=== PATIENT | female | born 1990 | race Caucasian/White ===

== ENCOUNTER 2018-07-05 11:42 | Emergency (ER) | payer OTHER ==
[2018-07-05 11:47] VITALS: BMI 58.4
[2018-07-05] MEDS ORDERED: KETOROLAC TROMETHAMINE 30 MG/1 ML VIAL IVPUSH ONE (12:35)
--- NOTE | 2018-07-05 12:39 | PDOC ---
History of Present Illness <Skyla Whitehead - Last Filed: 07/05/18 15:11> - General History Source: Patient - History of Present Illness Timing/Duration: other Associated Symptoms: reports: nausea/vomiting, weakness. denies: chest pain, fever/chills, headaches, shortness of breath <Jenny Ring - Last Filed: 07/05/18 15:28> - General Chief Complaint: Vomiting/Diarrhea Stated Complaint: VOMITING, DIARRHEA Time Seen by Provider: 07/05/18 12:32 Past History <Skyla Whiteheadmorganlurdes - Last Filed: 07/05/18 15:11> - Past Medical History Asthma: Yes COPD: No Psychiatric Problems: Yes (ANXIETY) - Immunization History Immunization Up to Date: Yes - Suicide/Smoking/Psychosocial Hx Smoking Status: Yes Smoking History: Never smoked Have you smoked in the past 12 months: No Number of Cigarettes Smoked Daily: 0 Information on smoking cessation initiated: No Hx Alcohol Use: No Drug/Substance Use Hx: No Substance Use Type: None <Jenny Ring - Last Filed: 07/05/18 15:28> - Past Medical History Allergies/Adverse Reactions: Allergies Allergy/AdvReac Type Severity Reaction Status Date / Time No Known Drug Allergies Allergy Verified 03/06/18 11:10 ORANGES AdvReac Mild Hives Uncoded 03/06/18 11:10 Review of Systems - Review of Systems Constitutional: Yes: Malaise, Weakness. No: Chills, Fever HEENTM: Yes: Throat Pain Respiratory: Yes: Cough. No: Shortness of Breath, Wheezing Cardiac (ROS): No: Chest Pain ABD/GI: Yes: Diarrhea, Nausea, Vomiting. No: Abdominal cramping : No: Dysuria <Jenny Ring Last Filed: 07/05/18 15:28> *Physical Exam - Vital Signs Last Vital Signs Temp Pulse Resp BP Pulse Ox 98.4 F 98 H 22 H 116/64 97 07/05/18 11:44 07/05/18 11:44 07/05/18 11:44 07/05/18 11:44 07/05/18 12:55 <Skyla Whiteheadmason - Last Filed: 07/05/18 15:11> - Vital Signs Last Vital Signs Temp Pulse Resp BP Pulse Ox 98.4 F 98 H 22 H 116/64 97 07/05/18 11:44 07/05/18 11:44 07/05/18 11:44 07/05/18 11:44 07/05/18 11:44 - Physical Exam General Appearance: Yes: Appropriately Dressed. No: Apparent Distress HEENT: positive: Normal ENT Inspection, Normal Voice. negative: Scleral Icterus (R), Scleral Icterus (L) Neck: positive: Supple. negative: Lymphadenopathy (R), Lymphadenopathy (L) Respiratory/Chest: positive: Lungs Clear, Normal Breath Sounds. negative: Respiratory Distress Cardiovascular: positive: Regular Rate, S1, S2 Gastrointestinal/Abdominal: positive: Soft. negative: Tender Integumentary: positive: Dry, Warm Neurologic: positive: Fully Oriented, Alert, Normal Mood/Affect <Jenny Ring - Last Filed: 07/05/18 15:28> Moderate Sedation - Procedure Monitoring Vital Signs: Procedure Monitoring Vital Signs Temperature 98.4 F 07/05/18 11:44 Pulse Rate 98 H 07/05/18 11:44 Respiratory Rate 22 H 07/05/18 11:44 Blood Pressure 116/64 07/05/18 11:44 O2 Sat by Pulse Oximetry (%) 97 07/05/18 12:55 <Skyla Whitehead - Last Filed: 07/05/18 15:11> - Procedure Monitoring Vital Signs: Procedure Monitoring Vital Signs Temperature 98.4 F 07/05/18 11:44 Pulse Rate 98 H 07/05/18 11:44 Respiratory Rate 22 H 07/05/18 11:44 Blood Pressure 116/64 07/05/18 11:44 O2 Sat by Pulse Oximetry (%) 97 07/05/18 11:44 <Jenny Ring - Last Filed: 07/05/18 15:28> ED Treatment Course - LABORATORY CBC & Chemistry Diagram: 07/05/18 13:05 07/05/18 13:05 - ADDITIONAL ORDERS Additional order review: Laboratory Results 07/05/18 07/05/18 07/05/18 14:10 14:10 13:05 Sodium 137 Potassium 4.4 Chloride 104 Carbon Dioxide 29 Anion Gap 3 L BUN 11 Creatinine 0.7 Creat Clearance w eGFR > 60 Random Glucose 95 Calcium 8.7 Total Bilirubin 0.3 AST 17 ALT 17 Alkaline Phosphatase 77 Total Protein 7.8 Albumin 3.3 L Serum , Qual Negative Urine Color Red Urine Appearance Cloudy Urine pH 6.0 Ur Specific [place] 1.027 Urine Protein 2+ H Urine Glucose (UA) Negative Urine Ketones Negative Urine Blood 3+ H Urine Nitrite Negative Urine Bilirubin Negative Urine Urobilinogen Negative Ur Leukocyte Esterase 1+ H Urine WBC (Auto) 6 Urine RBC (Auto) 3345 Ur Epithelial Cells Rare Urine Bacteria Few 07/05/18 13:05 RBC 5.08 MCV 63.1 L MCHC 28.9 L RDW 18.2 H MPV 8.0 D Neutrophils % 77.4 Lymphocytes % 15.7 Monocytes % 4.6 Eosinophils % 1.7 Basophils % 0.6 <Skyla Whitehead - Last Filed: 07/05/18 15:11> - LABORATORY CBC & Chemistry Diagram: 07/05/18 13:05 07/05/18 13:05 - RADIOLOGY Radiology Studies Ordered: Category Date Time Status CHEST PA & LAT [RAD] Stat Radiology 07/05/18 12:35 Ordered <Jenny Ring - Last Filed: 07/05/18 15:28> Medical Decision Making - Medical Decision Making The patient was seen and evaluated in conjunction with midlevel provider under my direct supervision, ancillary studies were reviewed. I agree with the plan as outlined by NIESHA Ring. HPI, workup/dispo as outlined. baseline anemia, on menses. but no s/s infection. 07/05/18 15:11 07/05/18 15:11 <Skyla Whitehead - Last Filed: 07/05/18 15:11> - Medical Decision Making 07/05/18 12:36 28-year-old female, morbidly obesed, h/oasthma, here with body aches with malaise, sore throat, cough, nausea, vomiting diarrhea 2 weeks. No f/c. Went to see her doctor and told her flu test was neg. Was prescribed Z-Pack for unclear reasons which she completed and states she felt better, but that at some point, symptoms recurred. No recent travel or sick contacts. Currently no shortness of breath, chest tightness or wheezing See exam Viral syndrome Neg flu recently Maegan uncomfortable but stable w/ unremarkable exam otherwise -sportive tx in ED -labs/cxr -reassess 07/05/18 14:34 UA w/ bld (pt on menses), no e/o infxn. Rest of labs neg. Dc w/ supportive tx and pmd f/u as needed 07/05/18 15:28 Labs and chest x-ray unremarkable. Patient feels better with IV fluid. Will discharge with supportive treatment <Jenny Ring - Last Filed: 07/05/18 15:28> *DC/Admit/Observation/Transfer <Skyla Whitehead - Last Filed: 07/05/18 15:11> <Jenny Ring - Last Filed: 07/05/18 15:28> Diagnosis at time of Disposition: Viral syndrome - Discharge Dispostion Disposition: HOME Condition at time of disposition: Improved - Referrals Referrals: Damari Arriola MD [Primary Care Provider] - - Patient Instructions Printed Discharge Instructions: DI for Viral Syndrome Additional Instructions: You most likely have viral illness which will run its course, until it gets better. Your labs were all normal. Maintain adequate hydration and take Motrin or Tylenol as needed for pain - Post Discharge Activity Forms/Work/School Notes: Back to Work
[2018-07-05 13:24] LABS: BASO % 0.6 % (0-2.0); EOS % 1.7 % (0-4.5); HEMOGLOBIN 9.2 GM/dL (10.7-15.3); LYMPH % 15.7 % (8-40); MCHC 28.9 g/dl (32.0-36.0); MEAN CELL VOLUME 63.1 fl (80-96); MONO % 4.6 % (3.8-10.2); NEUT % 77.4 % (42.8-82.8); PLATELET COUNT 375 K/MM3 (134-434); RBC 5.08 M/mm3 (3.60-5.2); RDW 18.2 % (11.6-15.6); WHITE BLOOD COUNT 11.4 K/mm3 (4.0-10.0)
[2018-07-05 13:27] LABS: MCH 18.2 pg (25.7-33.7)
[2018-07-05 13:50] LABS: ALBUMIN 3.3 g/dl (3.4-5.0); ALK PHOS 77 U/L (45-117); ANION GAP 3 MMOL/L (8-16); BILIRUBIN,TOTAL 0.3 mg/dL (0.2-1); BLOOD UREA NITROGEN 11 mg/dL (7-18); CALCIUM 8.7 mg/dL (8.5-10.1); CHLORIDE 104 mmol/L (98-107); CO2 29 mmol/L (21-32); CREATININE 0.7 mg/dL (0.55-1.3); GLUCOSE,RANDOM 95 mg/dL (74-106); POTASSIUM 4.4 mmol/L (3.5-5.1); SGOT/AST 17 U/L (15-37); SGPT/ALT 17 U/L (13-61); SODIUM 137 mmol/L (136-145); TOT PROT 7.8 g/dl (6.4-8.2)
[2018-07-05] MEDS ORDERED: SODIUM CHLORIDE 1,000 ML IV STA (14:15)
[2018-07-05 14:27] LABS: URINE APPEARANCE CLOUDY; URINE BILIRUBIN NEGATIVE (<2.0 mg/dL); URINE COLOR RED; URINE GLUCOSE (UA) NEGATIVE (NEGATIVE); URINE KETONE NEGATIVE (NEGATIVE); URINE LEUK ESTERASE 1+ (NEGATIVE); URINE NITRITE NEGATIVE (NEGATIVE); URINE PROTEIN 2+ (NEGATIVE); URINE UROBILINOGEN NEGATIVE mg/dL (0.2-1.0)
[2018-07-05 14:31] LABS: EPI CELLS RARE /HPF (FEW); URINE BACTERIA FEW /hpf (NONE SEEN)
[2018-07-05 15:42] VITALS: BP 118/52; PULSE 70; TEMP 98.1
[2018-07-05 16:46] LABS: ANISOCYTOSIS 1+
== END 2018-07-05 15:40 | disposition home or self-care (01) ==
LOC: JER 11:42
PROC: 3E0337Z Introduction of Electrolytic and Water Balance Substance into Peripheral Vein, Percutaneous Approach (ICD-10-PCS; principal; 2018-07-05)
DX: B34.9 Viral infection, unspecified (principal); J45.909 Unspecified asthma, uncomplicated; F41.8 Other specified anxiety disorders; E66.01 Morbid (severe) obesity due to excess calories; Z68.43 Body mass index [BMI] 50.0-59.9, adult
CPT/HCPCS: 36415; 71046-TC-FY; 80053; 81003; 81015; 84703; 85025; 87070; 87077; 87880; 99283-25; J7030

== ENCOUNTER 2018-08-31 13:38 | Emergency (ER) | payer OTHER ==
[2018-08-31 13:56] VITALS: BP 148/84; PULSE 88; BMI 58.6
--- NOTE | 2018-08-31 15:29 | PDOC ---
History of Present Illness - General Chief Complaint: Pain, Acute Stated Complaint: LT KNEE PAIN Time Seen by Provider: 08/31/18 14:39 - History of Present Illness Initial Comments: 08/31/18 15:26 28-year-old female without comorbidities presents for evaluation of right knee pain after twisting type injury 2 days ago. She points to the anterior lateral aspect of the right knee as the area of her discomfort. Past History - Past Medical History Allergies/Adverse Reactions: Allergies Allergy/AdvReac Type Severity Reaction Status Date / Time No Known Drug Allergies Allergy Verified 08/31/18 13:50 ORANGES AdvReac Mild Hives Uncoded 08/31/18 13:50 Home Medications: Ambulatory Orders Albuterol Sulfate Inhaler - [Ventolin Hfa Inhaler -] 1 - 2 inh PO QID PRN Fluticasone Propionate [Flovent Diskus] 1 inh IN BID 08/31/18 Fluticasone/Salmeterol [Advair 250-50 Diskus] 1 each IH BID 08/31/18 Montelukast Na [Singulair -] 10 mg PO HS 08/31/18 Asthma: Yes COPD: No Psychiatric Problems: Yes (ANXIETY) - Immunization History Immunization Up to Date: Yes - Suicide/Smoking/Psychosocial Hx Smoking Status: Yes Smoking History: Never smoked Have you smoked in the past 12 months: No Number of Cigarettes Smoked Daily: 0 Hx Alcohol Use: No Drug/Substance Use Hx: No Substance Use Type: None Review of Systems - Review of Systems Musculoskeletal: Yes: Joint Pain *Physical Exam - Vital Signs Last Vital Signs Temp Pulse Resp BP Pulse Ox 88 22 H 148/84 99 08/31/18 13:54 08/31/18 13:54 08/31/18 13:54 08/31/18 13:54 - Physical Exam Comments: 08/31/18 15:26 Right knee skin color and temperature are normal. The patient is morbidly obese and difficult to examine. She has diffuse tenderness which seems out of proportion to the examination however raised area of tenderness seems to be about the medial lateral joint line. Her extensor mechanism is intact. She resist stability testing however I am able to check varus and valgus stress which is normal. Her thighs and calves are soft and nontender she is neurovascularly intact free of any gross sensorimotor deficits. Moderate Sedation - Procedure Monitoring Vital Signs: Procedure Monitoring Vital Signs Temperature Pulse Rate 88 08/31/18 13:54 Respiratory Rate 22 H 08/31/18 13:54 Blood Pressure 148/84 08/31/18 13:54 O2 Sat by Pulse Oximetry (%) 99 08/31/18 13:54 ED Treatment Course - RADIOLOGY Radiology Studies Ordered: Category Date Time Status KNEE 3 POS-RIGHT [RAD] Stat Radiology 08/31/18 14:49 Taken Medical Decision Making - Medical Decision Making 08/31/18 15:27 X-ray show a fair amount of arthritis in the patellofemoral compartment as well as the medial lateral compartment of the right knee. This is most likely may be a meniscal injury versus an exacerbation of early-onset arthritis given her young age. She may weight-bear as tolerated with the use of crutches and a knee immobilizer which I encouraged her remove her gentle range of motion and follow- up with orthopedic surgery in 1-2 days for further evaluation and treatment options. I also advised on the use of Tylenol and Motrin for pain. Her asthma which she has a past medical history of, is not sensitive to anti- inflammatories or aspirin. *DC/Admit/Observation/Transfer Diagnosis at time of Disposition: Knee pain, right - Discharge Dispostion Disposition: HOME Condition at time of disposition: Stable Decision to Admit order: No - Referrals Referrals: Damari Arriola MD [Primary Care Provider] - Edy Catherine MD [Staff Physician] - - Patient Instructions Additional Instructions: He may weight-bear as tolerated with use of crutches and the knee immobilizer. You may remove the knee immobilizer for hygiene and range of motion. Your comfortable to ambulate without the knee immobilizer and crutches you may do that as well. Follow-up with orthopedic surgery in 2-3 days, Tylenol Motrin as directed for pain. Return to the emergency room should symptoms worsen or go unresolved. - Post Discharge Activity
== END 2018-08-31 15:36 | disposition home or self-care (01) ==
LOC: JERFT 13:38
DX: M25.561 Pain in right knee (principal); X58.XXXA Exposure to other specified factors, initial encounter; Y93.89 Activity, other specified; Y92.89 Other specified places as the place of occurrence of the external cause; J45.909 Unspecified asthma, uncomplicated; F41.9 Anxiety disorder, unspecified; E66.01 Morbid (severe) obesity due to excess calories
CPT/HCPCS: 73562-TC-RT-FY; 99281-25

== ENCOUNTER 2019-05-23 10:37 | Emergency (ER) | payer OTHER ==
[2019-05-23 10:42] VITALS: BP 149/93; PULSE 100; TEMP 98.3; BMI 58.3
--- NOTE | 2019-05-23 11:25 | PDOC ---
History of Present Illness - General Chief Complaint: Abscess Boil Stated Complaint: LT BREAST PAIN Time Seen by Provider: 05/23/19 10:45 History Source: Patient Exam Limitations: Clinical Condition - History of Present Illness Initial Comments: 05/23/19 11:28 Patient with past medical history of left breast abscess 3 years ago presented for evaluation status post being seen by breast surgeon 3 days ago for cellulitis and abscess to left breast and placed on Augmentin antibiotics. Patient reporting improvement in abscess swelling and redness to left breast but started having tingling sensation this morning and wants to make sure everything is okay. Patient reported marked improvement in redness to skin of left breast. Patient reported had fever 5 days ago which has improved with antibiotics. Patient been doing hot compress to left breast. Denies any other symptoms. Patient report calling her surgeon's office to discuss numbness and tingling sensation to breast area but was advised to come to ED due to breast surgery not being in office Timing/Duration: reports: week Past History - Past Medical History Allergies/Adverse Reactions: Allergies Allergy/AdvReac Type Severity Reaction Status Date / Time No Known Drug Allergies Allergy Verified 05/23/19 10:43 ORANGES AdvReac Mild Hives Uncoded 05/23/19 10:43 Home Medications: Ambulatory Orders Montelukast Na [Singulair -] 10 mg PO HS 08/31/18 Asthma: Yes COPD: No Psychiatric Problems: Yes (ANXIETY) - Immunization History Immunization Up to Date: Yes - Psycho Social/Smoking Cessation Hx Smoking Status: Yes Smoking History: Never smoked Have you smoked in the past 12 months: No Number of Cigarettes Smoked Daily: 0 Hx Alcohol Use: No Drug/Substance Use Hx: No Substance Use Type: None Review of Systems - Review of Systems Able to Perform ROS?: Yes Is the patient limited Telugu proficient: No Constitutional: No: Chills, Fever HEENTM: No: Symptoms Reported Respiratory: No: Symptoms reported Cardiac (ROS): No: Symptoms Reported ABD/GI: No: Symptoms Reported Musculoskeletal: No: Symptoms Reported, See HPI, Muscle Pain (left breast) Integumentary: Yes: Symptoms Reported, See HPI, Erythema (improving redness to skin of left breast) Neurological: No: Symptoms reported All Other Systems: Reviewed and Negative *Physical Exam - Vital Signs Last Vital Signs Temp Pulse Resp BP Pulse Ox 98.3 F 100 H 16 149/93 98 11/26/19 10:39 05/23/19 10:39 05/23/19 10:39 05/23/19 10:39 05/23/19 10:39 - Physical Exam General Appearance: Yes: Nourished, Appropriately Dressed. No: Apparent Distress HEENT: positive: Normal ENT Inspection Neck: positive: Supple Respiratory/Chest: positive: Normal Breath Sounds. negative: Respiratory Distress, Accessory Muscle Use Musculoskeletal: positive: Normal Inspection Extremity: positive: Normal Inspection Integumentary: positive: Erythema (mild erythema arounf vannessa-areola of left breast. no discharge from breast), Swelling (mild hard induration to vannessa- areola of left breast), Other (no inverted nipples. no discharge from nipples) Neurologic: positive: Fully Oriented, Alert, Normal Mood/Affect, Normal Response Medical Decision Making - Medical Decision Making 05/23/19 11:33 Patient with history of breast abscess presenting for evaluation of redness and abscess to left breast which has been improving on Augmentin antibiotics and hot compresses. Patient presented for evaluation of tingling sensation and numbness sensation to areolar of left breast. Exam significant for mild erythema with mild induration to periareolar of left breast with no discharge or inverted nipples. Patient afebrile. Patient tingling sensation likely due to swelling of left breast with inflammatory of skin of breast. Normal sensory to skin of left breast. Patient advised to continue prescribed Augmentin antibiotics and hot compress to breast as instructed by breast surgeon. Patient had follow-up appointment in 5 days with breast surgeon for reassessment. Patient stable for discharge Discharge - Discharge Information Problems reviewed: Yes Clinical Impression/Diagnosis: Left breast abscess, Cellulitis of left breast Condition: Stable Disposition: HOME - Admission No - Follow up/Referral Referrals: Komal Celis MD [Staff Physician] - - Patient Discharge Instructions Patient Printed Discharge Instructions: DI for Skin Abscess Additional Instructions: Continue with prescribed Augmentin antibiotics as prescribed by breast surgeon. Apply hot compress to breast area 2-3 times a day as needed for swelling. Take Motrin as needed for pain. Follow-up with your breast surgeon as scheduled - Post Discharge Activity
== END 2019-05-23 11:29 | disposition home or self-care (01) ==
LOC: JERFT 10:37
DX: N61.1 Abscess of the breast and nipple (principal); F41.9 Anxiety disorder, unspecified; J45.909 Unspecified asthma, uncomplicated; Z91.018 Allergy to other foods
CPT/HCPCS: 99281-25

== ENCOUNTER 2020-07-10 19:01 | Emergency (ER) | payer OTHER ==
[2020-07-10 19:08] VITALS: TEMP 98.5; BMI 60.2
[2020-07-10 21:43] LABS: BASO % 0.5 % (0-2.0); EOS % 0.1 % (0-4.5); HEMATOCRIT 31.9 % (32.4-45.2); HEMOGLOBIN 9.7 GM/dL (10.7-15.3); LYMPH % 13.6 % (8-40); MCHC 30.5 g/dl (32.0-36.0); MEAN CELL VOLUME 62.3 fl (80-96); MEAN PLT VOLUME 9.1 fl (7.5-11.1); NEUT % 82.8 % (42.8-82.8); PLATELET COUNT 364 K/MM3 (134-434); RBC 5.12 M/mm3 (3.60-5.2); RDW 19.2 % (11.6-15.6); WHITE BLOOD COUNT 7.5 K/mm3 (4.0-10.0)
[2020-07-10 21:55] LABS: PH,URINE 7.5 (5.0-8.0); URINE APPEARANCE Clear; URINE BILIRUBIN Negative (NEGATIVE); URINE COLOR Yellow; URINE GLUCOSE (UA) Negative (NEGATIVE); URINE KETONE Negative (NEGATIVE); URINE LEUK ESTERASE Negative (NEGATIVE); URINE NITRITE Negative (NEGATIVE); URINE PROTEIN Negative (NEGATIVE); URINE UROBILINOGEN 0.2 mg/dL (0.2-1.0)
[2020-07-10 22:05] LABS: BLOOD UREA NITROGEN 9.9 mg/dL (7-18); CALCIUM 9.4 mg/dL (8.5-10.1)
[2020-07-10 22:07] LABS: CREATININE 0.7 mg/dL (0.55-1.3)
[2020-07-10 22:10] LABS: BILIRUBIN,TOTAL 0.4 mg/dL (0.2-1); TOT PROT 8.3 g/dl (6.4-8.2)
[2020-07-10 23:58] VITALS: BP 130/76; PULSE 81
== END 2020-07-10 23:59 | disposition home or self-care (01) ==
LOC: JER 19:01
PROC: 3E0333Z Introduction of Anti-inflammatory into Peripheral Vein, Percutaneous Approach (ICD-10-PCS; principal; 2020-07-10)
DX: N83.201 Unspecified ovarian cyst, right side (principal)
CPT/HCPCS: 36415; 74177-TC; 76830-TC; 80053; 81003; 84703; 85025; 87077; 87086; 99285-25; J0131; Q9967